=== PATIENT | female | born 1985 | race Caucasian/White ===

== ENCOUNTER 2024-06-27 09:47 | Outpatient (CLI) | payer OTHER, SELFPAY ==
--- NOTE | ~2024-06-27 | US_ITS ---
EXAMINATION: US pelvic complete w TV DATE: 06/27/2024 10:42 INDICATION: Abnormal uterine and vaginal bleeding. TECHNIQUE: Multiple transabdominal and transvaginal sonographic images of the pelvis were obtained. COMPARISON: None. FINDINGS: TRANSABDOMINAL ULTRASOUND: The uterus measures 7.1 x 2.7 x 3.3 cm. There is no free fluid in the pelvis. TRANSVAGINAL ULTRASOUND: The endometrial complex measures 4 mm in thickness. The right ovary measures 1.5 x 1.2 x 1.5 cm. The left ovary measures 1.3 x 1.8 x 1.6 cm. There is normal vascular flow in the ovaries. IMPRESSION: 1. Normal pelvis. Reviewed, dictated and finalized at location A. IMPRESSION: 1. Normal pelvis.
== END 2024-06-27 09:48 | disposition home or self-care (01) ==
LOC: ANHIMG 09:54
PROVIDERS: Visit Provider Nurse Practitioner Obstetrics & Gynecology
DX: N93.9 Abnormal uterine and vaginal bleeding, unspecified (principal)
CPT/HCPCS: 76830; 76856

== ENCOUNTER 2025-07-27 11:51 | Outpatient (CLI) | payer OTHER, SELFPAY ==
--- NOTE | ~2025-07-27 | US_ITS ---
EXAMINATION: US transvaginal, 07/27/2025 11:52 CDT HISTORY: N93.9 - Abnormal uterine and vaginal bleeding, unspecified Comparison: None Technique: Vasques-scale and color Doppler images were obtained. Findings: Uterus: Uterus anteverted 8.1 x 4.2 x 5.9 cm. . Endometrium 11 mm. Right Ovary:Right ovary 3.3 x 2.2 x 2.1 cm, no adnexal mass, normal flow. Left Ovary: Left ovary 2.5 x 1.6 x 1.7 cm, no adnexal mass, normal flow. Free Fluid: None Impression: No acute abnormality. Reviewed, dictated and finalized at location P. Impression: No acute abnormality.
== END 2025-07-27 11:52 | disposition home or self-care (01) ==
LOC: MICIMG 11:51
PROVIDERS: PCP Nurse Practitioner Obstetrics & Gynecology; Visit Provider Nurse Practitioner Obstetrics & Gynecology
DX: N93.9 Abnormal uterine and vaginal bleeding, unspecified (principal)
CPT/HCPCS: 76830